=== PATIENT | male | born 1995 | race Caucasian/White ===

== ENCOUNTER 2024-02-19 20:29 | Emergency (ER) | payer SELFPAY ==
[~2024-02-19] VITALS: Ht 177.8 cm; Wt 81.6 kg
[2024-02-19 20:39] VITALS: O2SAT 98
[2024-02-19 20:48] VITALS: BP 150/70; PULSE 108; RESP 20; TEMP 97.4; O2SAT 98
[2024-02-19 23:08] LABS: APPEARANCE,URINE CLEAR (CLEAR); BILIRUBIN,URINE 1+ (NEGATIVE); BLOOD, URINE NEGATIVE (NEGATIVE); COLOR,URINE YELLOW (YELLOW); LEUKOCYTE ESTERASE ,URINE NEGATIVE (NEGATIVE); NITRITE, URINE NEGATIVE (NEGATIVE); PH,URINE 5.5 (5.0-9.0); PROTEIN,URINE TRACE (NEGATIVE); UGLUCOSE NEGATIVE (NEGATIVE); UROBILINOGEN,URINE 0.2 EU/dL (0.2 - 1)
[2024-02-19 23:09] LABS: ICTOTEST POSITIVE (NEGATIVE)
[2024-02-19 23:14] LABS: AMPHETAMINE, URINE POSITIVE ng/ml (NEG <=1000); BARBITURATE, URINE NEGATIVE ng/ml (NEG <=200); BENZODIAZEPINE, URINE NEGATIVE ng/mL (NEG <=200); CANNABINOID, URINE NEGATIVE ng/mL (NEG <=50); COCAINE, URINE NEGATIVE ng/mL (NEG <=300); OPIATE, URINE NEGATIVE ng/mL (NEG <=2000); PHENCYCLIDINE SCREEN,URINE NEGATIVE ng/mL (NEG <=25)
[2024-02-20] MEDS: HALOPERIDOL IM 5 MG/ML VIAL IVP ONE (00:15)
[2024-02-20] MEDS: diphenhydrAMINE 50 MG/ML VIAL IVP ONE (00:16)
[2024-02-20 00:17] VITALS: O2SAT 100
[2024-02-20] MEDS: NACL 0.9% 1,000 ML IV ONE (00:47)
[2024-02-20 03:08] VITALS: O2SAT 100
[2024-02-20 06:25] VITALS: O2SAT 96
[2024-02-20 08:48] VITALS: BP 95/48; PULSE 85; RESP 16; O2SAT 97
== END 2024-02-20 09:08 | disposition home or self-care (01) ==
LOC: MED 20:29 → EDBD 20:29 → MED 02-20 09:08
DX: F15.129 Other stimulant abuse with intoxication, unspecified (principal); R40.1 Stupor
CPT/HCPCS: 80305; 81003; 96361; 96374; 96375; 99285; J1200; J1630; J7030

== ENCOUNTER 2024-02-20 12:38 | Emergency (ER) | payer SELFPAY ==
[~2024-02-20] VITALS: Ht 170.2 cm; Wt 68.0 kg
[2024-02-20 12:47] VITALS: BP 116/74; PULSE 88; RESP 20; TEMP 97.5; O2SAT 97
== END 2024-02-20 14:27 | disposition left against medical advice (07) ==
LOC: MED 12:38
DX: F15.10 Other stimulant abuse, uncomplicated (principal); R53.1 Weakness; R23.8 Other skin changes
CPT/HCPCS: 99283